=== PATIENT | male | born 1995 | race Caucasian/White ===

== ENCOUNTER 2021-04-04 13:25 | Emergency (ER) | payer BC, OTHER ==
[2021-04-04 14:11] VITALS: BP 107/59; PULSE 88; TEMP 97.8; BMI 27.4
[2021-04-04] MEDS ORDERED: DIPHTH,PERTUSS(ACELL),TET 0.5 ML DISP.SYRIN IM ONE ×3 (15:20→15:24)
== END 2021-04-04 15:37 | disposition home or self-care (01) ==
LOC: JERFT 13:25
PROC: 0HQFXZZ Repair Right Hand Skin, External Approach (ICD-10-PCS; principal; 2021-04-04)
PROC: 3E0234Z Introduction of Serum, Toxoid and Vaccine into Muscle, Percutaneous Approach (ICD-10-PCS; 2021-04-04)
DX: S61.411A Laceration without foreign body of right hand, initial encounter (principal); W22.8XXA Striking against or struck by other objects, initial encounter
CPT/HCPCS: 73130-TC-RT-FY; 90715; 99283-25

== ENCOUNTER 2021-04-11 13:31 | Emergency (ER) | payer BC, OTHER ==
[2021-04-11 14:32] VITALS: BP 119/70; PULSE 67; TEMP 97; BMI 27.4
== END 2021-04-11 15:06 | disposition home or self-care (01) ==
LOC: JER 13:31 → JERFT 13:31
DX: S61.210A Laceration without foreign body of right index finger without damage to nail, initial encounter (principal); Y99.9 Unspecified external cause status; Z48.02 Encounter for removal of sutures
CPT/HCPCS: 99281-25

== ENCOUNTER 2022-09-27 08:40 | Day surgery (SDC) | payer BC, OTHER ==
[2022-09-21 13:16] VITALS: BMI 26.6
[2022-09-27 09:53] VITALS: RESP 18
[2022-09-27] MEDS ORDERED: FENTANYL CITRATE/PF 50 MCG/ML VIAL ONE (10:08)
[2022-09-27] MEDS ORDERED: MIDAZOLAM HCL 2 MG/2 ML SINGLE DOSE VIAL ONE (10:08)
[2022-09-27] MEDS ORDERED: DEXAMETHASONE SOD PHOSPHATE/PF 10 MG/ML SDV ONE (10:09)
[2022-09-27] MEDS ORDERED: ROPIVACAINE HCL 0.5% 30ML VIAL ONE (10:09)
[2022-09-27] MEDS ORDERED: SUCCINYLCHOLINE CHLORIDE 200 MG/10 ML SYRINGE ONE (10:31)
[2022-09-27] MEDS ORDERED: PROPOFOL 20 ML ONE (10:31)
[2022-09-27 13:01] VITALS: TEMP 97.4
[2022-09-27 13:58] VITALS: BP 128/74; PULSE 64
== END 2022-09-27 13:58 | disposition home or self-care (01) ==
LOC: FASU 08:40
PROVIDERS: ATTEND Orthopaedic Surgery
PROC: 0RQK4ZZ Repair Left Shoulder Joint, Percutaneous Endoscopic Approach (ICD-10-PCS; principal; 2022-09-27 11:14)
DX: S43.432A Superior glenoid labrum lesion of left shoulder, initial encounter (principal); X58.XXXA Exposure to other specified factors, initial encounter; Y92.9 Unspecified place or not applicable; Y93.9 Activity, unspecified
CPT/HCPCS: 29806; C1713; 94760

== ENCOUNTER 2023-12-09 20:06 | Emergency (ER) | payer BC, OTHER ==
[2023-12-09 20:22] VITALS: BP 141/85; PULSE 66; RESP 20; TEMP 98.4; BMI 25.7
[2023-12-09] MEDS ORDERED: KETOROLAC TROMETHAMINE 30 MG/1 ML VIAL ONE (20:45)
[2023-12-09] MEDS: KETOROLAC TROMETHAMINE 30 MG/1 ML VIAL IVPUSH ONE (20:47)
[2023-12-09] MEDS: SODIUM CHLORIDE 1,000 ML IV STA (20:47)
[2023-12-09 20:51] LABS: HEMATOCRIT 52.4 % (35.4-49); HEMOGLOBIN 17.4 G/dL (11.7-16.9); MCH 30.2 pg (25.7-33.7); MCHC 33.1 g/dl (32.0-35.9); MEAN CELL VOLUME 91.2 fl (80-96); MEAN PLT VOLUME 8.9 fl (7.5-11.1); PLATELET COUNT 252.9 10^3/uL (134-434); RBC 5.75 10^6/uL (4.00-5.60); RDW 13.6 % (11.9-15.9); WHITE BLOOD COUNT 13.1 10^3/uL (4.0-10.8)
[2023-12-09 21:14] LABS: PLATELET ESTIMATE ADEQUATE
[2023-12-09 21:18] LABS: ALBUMIN 5.1 g/dl (3.4-5.0); BILIRUBIN,TOTAL 0.7 mg/dl (0.2-1); CALCIUM 9.7 mg/dl (8.5-10.1); CREATININE 0.8 mg/dl (0.6-1.3); POTASSIUM 3.8 mmol/L (3.5-5.1); TOT PROT 7.7 g/dl (6.4-8.2)
== END 2023-12-09 23:59 | disposition home or self-care (01) ==
LOC: FER 20:06
PROC: 3E0333Z Introduction of Anti-inflammatory into Peripheral Vein, Percutaneous Approach (ICD-10-PCS; principal; 2023-12-09)
DX: N13.2 Hydronephrosis with renal and ureteral calculous obstruction (principal); R11.0 Nausea; R10.9 Unspecified abdominal pain
CPT/HCPCS: 36415; 74176-TC; 80053; 81003; 81015; 85027; 87086; 99284-25

== ENCOUNTER 2023-12-13 12:15 | Day surgery (SDC) | payer BC ==
[2023-12-13 15:25] VITALS: BMI 25.7
[2023-12-13] MEDS ORDERED: MIDAZOLAM HCL 2 MG/2 ML SINGLE DOSE VIAL ONE (20:23)
[2023-12-13] MEDS ORDERED: PROPOFOL 20 ML ONE ×2 (20:23→21:05)
[2023-12-13] MEDS ORDERED: GENTAMICIN SO4 80 MG/2 ML VIAL ONE (21:04)
[2023-12-13] MEDS: ACETAMINOPHEN 1000 MG/100 ML BAG IVPB ONE (21:57)
[2023-12-13] MEDS: LACTATED RINGERS SOLUTION 1,000 ML IV SCH (23:05)
[2023-12-14] MEDS: PIPERACILLIN/TAZOB 3.375 GM 3.375 GM in DEXTROSE 5%-WATER - 50 ML IVPB SCH (02:09)
[2023-12-14] MEDS ORDERED: PIPERACILLIN/TAZOB 3.375 GM 3.375 GM in DEXTROSE 5%-WATER - 50 ML IVPB SCH (03:00)
[2023-12-14 04:26] VITALS: RESP 18; TEMP 97.9
[2023-12-14] MEDS: ACETAMINOPHEN 500 MG TABLET (FP) PO PRN (04:46)
[2023-12-14] MEDS ORDERED: PIPERACILLIN/TAZOBACTAM 3.375 GM VIAL IVPB ONE ×2 (05:23→08:13)
[2023-12-14] MEDS ORDERED: IBUPROFEN 400 MG TABLET (FP) PO PRN (07:00)
[2023-12-14 08:43] VITALS: BP 133/64; PULSE 75
[2023-12-14] MEDS: BUDESONIDE/FORMETEROL FUMARATE 160/4.5 mcg INHALER IH SCH (09:32)
== END 2023-12-14 11:15 | disposition home or self-care (01) ==
LOC: JASUSAT 12:15 → SUATTDRO 12:15 → JASU-SURG 12:15 → J6S 23:53 → JASUSAT 12-14 11:15
PROVIDERS: ATTEND Internal Medicine
PROC: 0WHR8YZ Insertion of Other Device into Genitourinary Tract, Via Natural or Artificial Opening Endoscopic (ICD-10-PCS; principal; 2023-12-13 17:30)
PROC: BT1DYZZ Fluoroscopy of Right Kidney, Ureter and Bladder using Other Contrast (ICD-10-PCS; 2023-12-13 17:30)
DX: N20.1 Calculus of ureter (principal)
CPT/HCPCS: 76000-TC-FY; 87040; 87086; 94760; C1758; C2617; J0131

== ENCOUNTER 2023-12-20 04:25 | Day surgery (SDC) | payer BC ==
[2023-12-19 13:50] VITALS: BMI 25.7
[2023-12-20 15:37] VITALS: RESP 18
[2023-12-20] MEDS ORDERED: ONDANSETRON 4 MG/2 ML VIAL IVPUSH PRN ×2 (17:18→19:35)
[2023-12-20] MEDS ORDERED: PROPOFOL 20 ML ONE ×2 (17:27→17:32)
[2023-12-20] MEDS ORDERED: MIDAZOLAM HCL 2 MG/2 ML SINGLE DOSE VIAL ONE (17:27)
[2023-12-20] MEDS ORDERED: ONDANSETRON 4 MG/2 ML VIAL ONE (18:27)
[2023-12-20] MEDS: LACTATED RINGERS SOLUTION 1,000 ML IV SCH (18:45)
[2023-12-20] MEDS ORDERED: MEPERIDINE HCL 25 MG/ML VIAL ONE (18:53)
[2023-12-20] MEDS: MEPERIDINE HCL 25 MG/ML VIAL IVPUSH ONE (19:04)
[2023-12-20] MEDS ORDERED: LACTATED RINGERS SOLUTION 1,000 ML IV SCH (19:35)
[2023-12-20] MEDS: IBUPROFEN 400 MG TABLET (FP) PO ONE (20:51)
[2023-12-20] MEDS: ACETAMINOPHEN 325 MG TABLET (FP) PO ONE (20:53)
[2023-12-20 22:58] VITALS: BP 112/70; PULSE 76; TEMP 97.9
== END 2023-12-20 23:03 | disposition home or self-care (01) ==
LOC: JASU-SURG 04:25 → JASUSAT 04:25 → J5S 20:09 → JASUSAT 23:03
PROVIDERS: ATTEND Urology
PROC: 0TC68ZZ Extirpation of Matter from Right Ureter, Via Natural or Artificial Opening Endoscopic (ICD-10-PCS; principal; 2023-12-20 17:30)
PROC: 0T768DZ Dilation of Right Ureter with Intraluminal Device, Via Natural or Artificial Opening Endoscopic (ICD-10-PCS; 2023-12-20 17:30)
DX: N20.1 Calculus of ureter (principal)
CPT/HCPCS: 76000-TC-FY; 94760; C1758; C1769; C2617